=== PATIENT | male | born 1980 | race Asian ===

== ENCOUNTER 2017-02-17 13:50 | Emergency (ER) | payer OTHER ==
--- NOTE | ~2017-02-17 | CR141 ---
[facility]. [facility] A Service of [facility] & [facility] RADIOLOGY TEXT RESULTS PATIENT: SCOTT REIS LOCATION: SED : 76 UNIT #: [id number] AGE: [address]: KELLI MYERS SEX: M ORDER DR: [id number] [place] [id number] E MR#: [id number] Acc #: [id number] NAME: SCOTT REIS : 1980 SEX: M STUDY DATE/TIME: 02/17/2017 13:43 UNIT: SED ROOM: STUDY DESCRIPTION: CR Hand Min 3 Views Lt Attending Physician: Kelli Myers Aprn Referring Physician: Kelli Myers Aprn Ordering Physician: Physician Non-Staff Primary Care Physician: No Primary Care Physician MEDICAL IMAGING REPORT This report is preliminary unless electronic signature is present. EXAM Left hand 02/17/2017 HISTORY Patient dropped a brick on the hand today. Hand pain. TECHNIQUE 3 views of the hand were obtained. FINDINGS 3 views of the hand show a longitudinal split fracture of the distal phalanx of the third digit extending down to the neck of the distal phalanx. The articular surface of the DIP joint is intact. No radiodense foreign bodies are seen. IMPRESSION Longitudinal split fracture of the distal phalanx of third digit. Fracture line is not extend to the DIP joint. Dictated by... Noé Ha M.D. THIS IS AN ELECTRONICALLY VERIFIED REPORT Noé Ha M.D. at 02/17/2017 6:02 PM [place] TD: 02/17/2017 15:22 JOB #: [id number] MEDICAL IMAGING REPORT Page 1 of 1
[~2017-02-17 13:50] MED LIST: CHOLESTEROL MEDICATI; METFORMIN HCL1000 M2
== END 2017-02-17 16:13 | disposition home or self-care (01) ==
LOC: SED 13:50
DX: S62.633B Displaced fracture of distal phalanx of left middle finger, initial encounter for open fracture (principal); Z23 Encounter for immunization; E11.9 Type 2 diabetes mellitus without complications; W23.0XXA Caught, crushed, jammed, or pinched between moving objects, initial encounter
CPT/HCPCS: 12001; 73130; 90471; 90715; 99283